=== PATIENT | male | born 1955 | race Caucasian/White ===

== ENCOUNTER 2022-02-23 13:46 | Day surgery (SDC) | payer MEDICARE ==
[2022-02-23] VITALS (10 sets, daily range): BP systolic 127–161; BP diastolic 68–82; PULSE 48–80; TEMP 97.4–98.1
[~2022-02-23] VITALS: Ht 167.6 cm; Wt 70.2 kg
[2022-02-23] MEDS ORDERED: LIPITOR20 MG PO (15:01)
[2022-02-23] MEDS ORDERED: PRINIVIL20 MG PO (15:01)
[2022-02-23] MEDS ORDERED: FLOMAX 0.40.4 MG/CAP PO (15:02)
[2022-02-23] MEDS ORDERED: PYRIDIUM 100MG100 MG PO (17:09)
--- NOTE | 2022-02-23 18:00 | NUR ---
PATIENT ADMITED INTO ROOM 342 POST OP. A&O. VSS. NO C/O PAIN OR NAUSEA. IV FLUIDS INFUSING INTO RIGHT FORARM IV. WALKER TO DD WITH CBI INFUSING AT MOD RATE, URINE IS PINK WITH NO CLOTS NOTED. PATIENT LOOKING AT MENU. HEAD TO TOE ASSESSMENT COMPLETE. ORIENTED TO ROOM. CALL LIGHT IN REACH.
[2022-02-24 03:50] VITALS: BP 110/53; PULSE 66; TEMP 98.1
--- NOTE | 2022-02-24 06:16 | NUR ---
CBI continues @slow-mod rate to keep urine pink, no clots noted, 3200 cc urine out this shift. pt tolerated regular diet @ dinner, no N/V, IVF dc'd, IV to RFA INT, no c/o pain, refused colace @HS.
[2022-02-24 07:57] VITALS: BP 115/58; PULSE 67; TEMP 98.1
--- NOTE | 2022-02-24 09:26 | NUR ---
Initial visit; Patient from [place]. He thanked Manager Commercial [employer] for looking in on him and says he is doing well this morning. Manager [employer] offered God's blessings.
--- NOTE | 2022-02-24 09:30 | NUR ---
P&P PER UROLOGY. INFUSED 300CC OF IRRIGATION AND PULLED WALKER. PATIENT TOLERATED WELL. GAVE 6 CUP ROUTINE EDUCATION. URINAL AT BEDSIDE. PATIENT STAND BY ASSIST TO BEDSIDE CHAIR. ENCOURAGED FLUIDS.
--- NOTE | 2022-02-24 10:01 | NUR ---
PT SITTING UP IN RECLINER. FINN ROSE DISCONTINUED CBI, PULLED WALKER, AND EDUCATED PT ON POST CBI VOIDING. PT HAS SOME BLOODY DRAINAGE FROM PENIS, NO URINE OUTPUT YET. PT DENIES ANY PAIN OR NEEDS. CALL LIGHT WITHIN REACH. WILL CONTINUE TO MONITOR.
[2022-02-24 11:51] VITALS: BP 166/78; PULSE 69; TEMP 98.2
--- NOTE | 2022-02-24 14:05 | NUR ---
DISCHARGE INSTRUCTIONS REVIEWED, ALL QUESTIONS ANSWERED. IV D/C. PT PACKING PERSONAL BELONGINGS AND WILL BE ESCORTED DOWN BY [facility] STAFF.
== END 2022-02-24 14:37 | disposition home or self-care (01) ==
LOC: SDCO 13:46 → SURG 18:00 → SDCO 02-24 14:37
DX: N40.1 Benign prostatic hyperplasia with lower urinary tract symptoms (principal); R39.12 Poor urinary stream; R35.1 Nocturia; R33.9 Retention of urine, unspecified; R39.198 Other difficulties with micturition; Z87.891 Personal history of nicotine dependence; K21.9 Gastro-esophageal reflux disease without esophagitis
CPT/HCPCS: OP; J0690; J1100; J2405; J2704; J3010; J7120